=== PATIENT | female | born 1985 | race Caucasian/White ===

== ENCOUNTER 2023-11-27 13:03 | Emergency (ER) | payer SELFPAY ==
[2023-11-27 14:03] LABS: Hematocrit 34.4 % (36.0-47.0); Hemoglobin 11.5 g/dL (12.0-16.0); Mean Corpuscular HGB CONC 33.4 g/dL (32.0-36.0); Mean Corpuscular Hemoglobin 29.8 pg (27.0-31.0); Mean Corpuscular Volume 89.4 fl (78.0-98.0); Platelet Count 263 10x3/uL (130-400); RBC Distribution Width 12.4 % (11.5-14.5); Red Blood Cell (RBC) Count 3.84 mill/uL (4.20-5.40); White Blood Cell (WBC) Count 9.9 10x3/uL (4.8-10.8)
[2023-11-27 14:04] LABS: Mean Platelet Volume 7.3 fL (7.4-10.4)
[2023-11-27 14:05] LABS: %Eosinophils 0.5 % (0.0-10.0); %Neutrophils 73.8 % (42.0-75.0)
[2023-11-27 14:06] LABS: #Monocytes 0.5 thou/uL (0.11-0.59); #Neutrophils 7.3 thou/uL (1.40-6.50); %Basophils 0.6 % (0.0-1.0); %Monocytes 5.1 % (0.0-10.0); ALT (SGPT) 28 U/L (8-55); AST (SGOT) 22 U/L (5-34); Albumin 3.9 g/dL (3.5-5.0); Alkaline Phosphatase 73 U/L (40-110); Anion Gap 13 mmol/L (10-20); BUN (Urea Nitrogen) 15 mg/dL (7.0-18.7); Bilirubin, Total 0.4 mg/dL (0.2-1.2); Calc. Creatinine Clearance 0 mL/min (70-130); Calcium 8.9 mg/dL (7.8-10.44); Carbon Dioxide 23 mmol/L (22-29); Chloride 108 mmol/L (98-107); Estimated GFR 61; Globulin 2.8 g/dL (2.4-3.5); Glucose 116 mg/dL (70-105); Potassium 3.6 mmol/L (3.5-5.1); Protein, Total 6.7 g/dL (6.0-8.3); Sodium 140 mmol/L (136-145)
[2023-11-27 14:07] LABS: #Basophils 0.1 thou/uL (0.0-0.2); #Eosinphils 0.1 thou/uL (0.0-0.7)
[2023-11-27 14:25] LABS: Troponin I Less than 0.010 ng/mL (< 0.028)
[2023-11-27] MEDS ORDERED: Ketorolac Tromethamine 30 MG (1 mL) VIAL ONE (14:32)
== END 2023-11-27 15:36 | disposition home or self-care (01) ==
LOC: MADERS 13:03
DX: M94.0 Chondrocostal junction syndrome [Tietze] (principal)
CPT/HCPCS: 71045; 80053; 84484; 85025; 93005; 96372; J1885

== ENCOUNTER 2024-03-25 10:40 | Emergency (ER) | payer BC ==
[2024-03-25 11:20] LABS: Pregnancy Test - Urine (BHCG) Negative (Negative); Pregu Control Background? CLEAR/WHITE (CLR/WHITE); Pregu Control Bar Appear? YES (CONTROL BAR); Specific Gravity 1.029 (1.002-1.036)
[2024-03-25] MEDS ORDERED: Dexamethasone 10 MG/ML VIAL ONE (11:47)
[2024-03-25] MEDS ORDERED: Albuterol 200 PUFF (6.7GM INHALER) ONE (11:48)
== END 2024-03-25 12:17 | disposition home or self-care (01) ==
LOC: MADERS 10:40
DX: J20.9 Acute bronchitis, unspecified (principal)
CPT/HCPCS: 71046; 81025; 87081; 87430; 87804; 96372; J1100